=== PATIENT | female | born 1950 | race African-American/Black ===

== ENCOUNTER 2018-03-20 09:49 | Emergency (ER) | payer MEDICARE, OTHER ==
[~2018-03-20] VITALS: Ht 165.1 cm; Wt 64.9 kg
[2018-03-20 10:05] VITALS: BP 139/86
--- NOTE | 2018-03-20 10:35 | Emergency Room Report ---
History of Present Illness General Chief Complaint: Eye Problems Source: Patient Present Illness HPI The patient states that she used a hair product that she got into her eye several days ago. She states she noted some burning and irritation in her left eye. However, she states that yesterday she woke up and the eyelid was swollen. She states the conjunctivae her eye became swollen and irritated. She does wear contacts and continues to wear her contacts. She denies eye pain. She denies change in vision. She states that there has been some discharge on her eyelids in the morning. She denies light sensitivity. She has no other complaints. Allergies: Coded Allergies: PENICILLINS (Verified Allergy, Unknown, 03/20/18) Patient History Past Medical History: none Social History: Denies: smoking, alcohol use, drug use Last Menstrual Period: 25 yrs ago Reviewed Nursing Documentation: PMH: Agreed; PSxH: Agreed Nursing Documentation-PMH Past Medical History: No Stated History Review of Systems All Other Systems: negative except mentioned in HPI Physical Exam Vital Signs Date Time Temp Pulse Resp B/P (MAP) Pulse Ox O2 Delivery O2 Flow Rate FiO2 03/20/18 09:59 98.0 76 18 139/86 96 Room Air 98.1 Sp02 EP Interpretation: reviewed, normal General Appearance: no apparent distress, alert, GCS 15, non-toxic Head: normocephalic, atraumatic Eyes: left eye other - Clear eye lid and periorbital swelling (no erythema). Conjuctival edema and erythema. +2 contacts removed from eye.; bilateral eye PERRL ENT: hearing grossly normal, normal pharynx, no angioedema, normal voice Neck: full range of motion, supple/symm/no masses Respiratory: no respiratory distress, no retraction, no accessory muscle use, speaking full sentences Rectal: deferred Musculoskeletal: back normal, gait/station normal, normal range of motion, non- tender Neurologic: alert, oriented x3, responsive, motor strength/tone normal, sensory intact, speech normal Psychiatric: judgement/insight normal, memory normal, mood/affect normal, no suicidal/homicidal ideation Skin: normal color, no rash, warm/dry, well hydrated Medical Decision Making Diagnostic Impression: Primary Impression: Conjunctivitis Additional Impression: Allergic reaction ER Course This patient has periorbital edema consistent with an allergic reaction. There is no erythema or findings on exam that would make me concerned for periorbital cellulitis. The patient also has conjunctival edema and erythema. When I removed the patient's contact there was another contact underneath it. The patient had 2 contacts in her eye. Possibly this could've been causing the irritation and inflammation. There is no obvious corneal ulcer on exam. The patient has an appointment with her [facility] [employer] in 2 days. She has no eye pain and overall the area is primarily inflamed and there does not appear to be a hyphema or other concerning eye infection. There is no evidence of orbital cellulitis. I will place the patient on topical antibiotics. I will also place the patient on oral Benadryl. The patient was instructed to not use any contacts until this is completely resolved. I did dispose of the 2 contacts that were pulled from the patient's left eye. The patient is given very close return precautions and follow-up instructions. Last Vital Signs Date Time Temp Pulse Resp B/P (MAP) Pulse Ox O2 Delivery O2 Flow Rate FiO2 03/20/18 10:05 98.1 18 139/86 96 Room Air 98.1 03/20/18 09:59 76 Status: improved Disposition: HOME, SELF-CARE Condition: Improved Scripts No Active Prescriptions or Reported Meds Referrals: NOT CHOSEN [facility]/MD,REFERRING (PCP) Patient Instructions: Allergic Conjunctivitis, [id number], Chemical Conjunctivitis, [id number] GISSELL MARTINEZ D.O. March 20, 2018 10:35
[2018-03-20] MEDS ORDERED: BENADRYL25 MG ORAL (10:38)
[2018-03-20] MEDS ORDERED: OFLOXACIN10 ML OP (10:38)
[2018-03-20 10:56] VITALS: BP 139/86
== END 2018-03-20 10:56 | disposition home or self-care (01) ==
LOC: EMR 10:22
DX: H10.12 Acute atopic conjunctivitis, left eye (principal); Z88.0 Allergy status to penicillin
CPT/HCPCS: 99283

== ENCOUNTER 2018-12-14 22:51 | Emergency (ER) | payer MEDICARE, OTHER ==
[~2018-12-14] VITALS: Ht 165.1 cm; Wt 70.3 kg
[~2018-12-14 22:51] MED LIST: BENADRYL25 MG ORAL; OFLOXACIN10 ML OP
[2018-12-14] MEDS ORDERED: NKM (23:09)
--- NOTE | 2018-12-14 23:11 | NUR ---
ED Nurse Note: Patient walk in c/o cough, chest congestion, generalized weakness for 4x days. AO4 NAD. Attached to monitor.
[2018-12-14 23:30] VITALS: BP 150/83
[2018-12-14] MEDS ORDERED: PREDNISONE20 MG ORAL (23:47)
[2018-12-14] MEDS ORDERED: ZITHROMAX250 MG ORAL (23:47)
[2018-12-14] MEDS ORDERED: ALBUTEROL SULF8.5 GM INH (23:47)
--- NOTE | 2018-12-14 23:48 | Emergency Room Report ---
History of Present Illness General Chief Complaint: Upper Respiratory Illness Source: Patient Present Illness HPI This is a 68-year-old female with no past medical history. She presents with chief complaint of cough and congestion. Onset for last 4 days. Coughing is productive sputum. No fever chills but no nausea no vomiting. Worse with inspiration. Better with rest. Denies any other complaint. Allergies: Coded Allergies: PENICILLINS (Verified Allergy, Unknown, 03/20/18) Patient History Past Medical History: see triage record, old chart reviewed Past Surgical History: none Pertinent Family History: none Social History: Denies: smoking Last Menstrual Period: PABLO Now: No Immunizations: other Reviewed Nursing Documentation: PMH: Agreed; PSxH: Agreed Nursing Documentation-PMH Past Medical History: No Stated History Review of Systems Eye: Denies: eye pain, blurred vision ENT: Denies: ear pain, nose congestion, throat swelling Respiratory: Reports: cough, shortness of breath, sputum Cardiovascular: Denies: chest pain, palpitations Gastrointestinal: Denies: abdominal pain, diarrhea, nausea, vomiting Musculoskeletal: Denies: back pain, joint pain Skin: Denies: rash Neurological: Denies: headache, numbness Endocrine: Denies: increased thirst, increased urine Hematologic/Lymphatic: Denies: easy bruising All Other Systems: negative except mentioned in HPI Physical Exam Vital Signs Date Time Temp Pulse Resp B/P (MAP) Pulse Ox O2 Delivery O2 Flow Rate FiO2 12/14/18 23:05 98.2 85 16 150/83 96 Room Air vitals normal Sp02 EP Interpretation: reviewed, normal General Appearance: well appearing, no apparent distress, alert Head: normocephalic, atraumatic Eyes: bilateral eye PERRL, bilateral eye EOMI ENT: hearing grossly normal, normal pharynx Neck: full range of motion, supple, no meningismus Respiratory: chest non-tender, lungs clear, normal breath sounds, other - Coughing fits with inspiration. Cardiovascular #1: regular rate, rhythm, no murmur Gastrointestinal: normal bowel sounds, non tender, no mass, no organomegaly, no bruit, non-distended Musculoskeletal: back normal, gait/station normal, normal range of motion Neurologic: alert, oriented x3 Psychiatric: mood/affect normal Skin: warm/dry Medical Decision Making Diagnostic Impression: Primary Impression: Upper respiratory infection Qualified Codes: J06.9 - Acute upper respiratory infection, unspecified ER Course Patient presents with upper respiratory infection. No evidence of ACS, PE, dissection to name a few. We'll discharge home. Last Vital Signs Date Time Temp Pulse Resp B/P (MAP) Pulse Ox O2 Delivery O2 Flow Rate FiO2 12/14/18 23:05 98.2 85 16 150/83 96 Room Air Status: unchanged Disposition: HOME, SELF-CARE Condition: Stable Scripts Azithromycin* (ZITHROMAX*) 250 Mg Tablet 250 MG ORAL DAILY, #6 TAB 0 Refills Take two tables once daily for 1 day, then one tablet once daily for 4 days. Prov: Wayne Lion MD 12/14/18 Prednisone* (PREDNISONE*) 20 Mg Tablet 40 MG ORAL DAILY, #10 TAB Prov: Wayne Lion MD 12/14/18 Albuterol Sulfate* (ALBUTEROL SULFATE MDI*) 8.5 Gm Hfa.aer.ad 2 PUFF INH Q4H PRN for cough/wheezing, #1 EA 0 Refills Prov: Wayne Lion MD 12/14/18 Patient Instructions: Upper Respiratory Infection, Adult Additional Instructions: Increase fluids. Follow-up with your doctor in 7 days. Return if worse. Wayne Lion MD Dec 14, 2018 23:48
[2018-12-14 23:53] VITALS: BP 150/83
--- NOTE | 2018-12-14 23:53 | NUR ---
ED Nurse Note: Patient cleared for discharge per ERMD. AO4 NAD. VSS. Patient given prescriptions and discharge instructions; verbalized understanding. ID band removed. Patient ambulated steady with all personal belongings.
== END 2018-12-14 23:53 | disposition home or self-care (01) ==
LOC: EMR 23:43
DX: J06.9 Acute upper respiratory infection, unspecified (principal); Z88.0 Allergy status to penicillin
CPT/HCPCS: 99282

== ENCOUNTER 2019-11-13 17:37 | Emergency (ER) | payer MEDICARE, OTHER ==
[~2019-11-13] VITALS: Ht 162.6 cm; Wt 69.4 kg
[~2019-11-13 17:37] MED LIST changes: +ALBUTEROL SULF8.5 GM INH; +NKM; +PREDNISONE20 MG ORAL; +ZITHROMAX250 MG ORAL
--- NOTE | 2019-11-13 18:30 | NUR ---
ED Nurse Note: pt ambulated into ED CO of feeling dehydrated. Pt denies dizziness, weakness, n/v, changes in mentation and balance, and pain.
[2019-11-13 18:34] VITALS: BP 145/85
--- NOTE | 2019-11-13 19:10 | NUR ---
ED Nurse Note: Report received from WAYNE Rodriguez. Pt resting in bed at this time. No acute distress or pain noted. IV fluids infusing as ordered. Will continue to monitor.
--- NOTE | 2019-11-13 19:28 | Emergency Room Report ---
History of Present Illness General Chief Complaint: General Complaint Source: Patient Present Illness HPI 69-year-old female with no symptom past medical history here first with her knees for her to be treated for food poisoning which she decides to checking reporting that she has been feeling dehydrated for over 1 year. Patient reports that she goes to the [facility] and gets tested for various things has been having recent blood work which reports everything has been normal. Patient reports that she is constantly dehydrated however vital signs are within normal limits. Patient is eating a sandwich and chips and appears to be stable. Denies chest pain, shortness of breath, palpitation, headache and dizziness. Is requesting IV fluids. Has no other complaints. Denies Allergies: Coded Allergies: PENICILLINS (Verified Allergy, Unknown, 03/20/18) Patient History Past Medical History: see triage record Past Surgical History: unable to obtain Pertinent Family History: none Now: No Immunizations: UTD Reviewed Nursing Documentation: PMH: Agreed; PSxH: Agreed Nursing Documentation-PMH Past Medical History: No Stated History Review of Systems All Other Systems: negative except mentioned in HPI Physical Exam Vital Signs Date Time Temp Pulse Resp B/P (MAP) Pulse Ox O2 Delivery O2 Flow Rate FiO2 11/13/19 18:21 97.9 53 16 145/85 (105) 97 Room Air Sp02 EP Interpretation: reviewed, normal General Appearance: no apparent distress, alert, GCS 15, non-toxic Head: normocephalic, atraumatic Eyes: bilateral eye normal inspection, bilateral eye PERRL ENT: hearing grossly normal, normal pharynx, no angioedema, normal voice Neck: full range of motion, supple, thyroid normal, supple/symm/no masses Respiratory: chest non-tender, lungs clear, normal breath sounds, no rhonchi, no wheezing, speaking full sentences Cardiovascular #1: regular rate, rhythm, no edema, no murmur, normal capillary refill Gastrointestinal: non tender, soft, no mass Genitourinary: normal inspection, no CVA tenderness Musculoskeletal: back normal Psychiatric: judgement/insight normal, memory normal, mood/affect normal, no suicidal/homicidal ideation Skin: no rash Lymphatic: no adenopathy Medical Decision Making PA Attestation All diagnoses and treatment plans were reviewed and discussed with my supervising physician Dr. Bates Diagnostic Impression: Primary Impression: Dehydration ER Course 69-year-old female with no symptom past medical history here first with her knees for her to be treated for food poisoning which she decides to checking reporting that she has been feeling dehydrated for over 1 year. Patient reports that she goes to the [facility] and gets tested for various things has been having recent blood work which reports everything has been normal. Patient reports that she is constantly dehydrated however vital signs are within normal limits. Patient is eating a sandwich and chips and appears to be stable. Denies chest pain, shortness of breath, palpitation, headache and dizziness. Is requesting IV fluids. Has no other complaints. Denies Ddx considered but are not limited to: Fatigue, dehydration, diabetes Vital signs: are WNL, pt. is afebrile H&PE are most consistent with dehydration ORDERS: None ED INTERVENTIONS: IV fluids DISCHARGE: At this time pt. is stable for d/c to home. Will provide printed patient care instructions, and any necessary prescriptions. Care plan and follow up instructions have been discussed with the patient prior to discharge. Patient appears to be stable, symptoms appear to be chronic and patient stable I advised patient to follow primary care provider for complete blood work. At this time patient stable and agrees to only receive IV fluids. No signs of obvious dehydration noted. Patient is given complementary NS bolus. Last Vital Signs Date Time Temp Pulse Resp B/P (MAP) Pulse Ox O2 Delivery O2 Flow Rate FiO2 11/13/19 18:34 53 16 Room Air 11/13/19 18:34 97.9 145/85 97 Disposition: HOME, SELF-CARE Condition: Stable Patient Instructions: Dehydration, Adult, [id number] Additional Instructions: Take medication as directed, follow-up with your primary care provider, increase oral hydration, you need to be seen by primary care provider as you have been feeling fatigued and dehydrated for 1 year. Complete blood work as well as further evaluation to be done by your primary care physician. At this time it is not an acute condition and can be treated in outpatient clinic. Gretchen Mccall Nov 13, 2019 19:28
[2019-11-13 20:05] VITALS: BP 138/80
--- NOTE | 2019-11-13 20:05 | NUR ---
ER DISCHARGE NOTE: Patient is cleared to be discharged per ERMD, pt is aox4, on room air, with stable vital signs. pt was given dc and prescription instructions, pt was able to verbalize understanding, pt id band and iv site removed without complications. pt is able to ambulate with steady gait. pt took all belongings.
== END 2019-11-13 20:05 | disposition home or self-care (01) ==
LOC: EMR 19:25
DX: E86.0 Dehydration (principal); Z88.0 Allergy status to penicillin
CPT/HCPCS: 96360; 99284

== ENCOUNTER 2020-10-22 01:20 | Emergency (ER) | payer MEDICARE ==
[~2020-10-22] VITALS: Ht 167.6 cm; Wt 70.3 kg
[2020-10-22 02:00] VITALS: BP 171/96
--- NOTE | 2020-10-22 02:00 | NUR ---
ED Nurse Note: Patient walked into ED for c/o headache x1 day. Denies n/v or visual disturbances. BP elevated upon ED triage, MD aware. She is aaox4, breathing is normal and unlabored. No chest pain, sob or cough noted. Denies any injury or head trauma.
--- NOTE | 2020-10-22 02:13 | Emergency Room Report ---
History of Present Illness General Chief Complaint: Headache Source: Patient Present Illness HPI 70-year-old female presents complaining of headache. X1 day. Pain is shooting from one side of head to the other. Denies pain at this time. Denies photophobia or blurry vision. Denies nausea or vomiting. BP in triage elevated. Denies history of hypertension. States she does not see a PMD. [facility] No other aggravating relieving factors. Denies any other associated symptoms Allergies: Coded Allergies: PENICILLINS (Verified Allergy, Unknown, 03/20/18) COVID-19 Screening Contact w/high risk pt: No Experienced COVID-19 symptoms?: No COVID-19 Testing performed G[employer] SERVICES: No Patient History Past Medical History: none Past Surgical History: none Pertinent Family History: none Social History: Denies: smoking, alcohol use, drug use Now: No Immunizations: UTD Reviewed Nursing Documentation: PMH: Agreed; PSxH: Agreed Nursing Documentation-PMH Past Medical History: No Stated History Review of Systems All Other Systems: negative except mentioned in HPI Physical Exam Vital Signs Date Time Temp Pulse Resp B/P (MAP) Pulse Ox O2 Delivery O2 Flow Rate FiO2 10/22/20 01:37 98.2 60 16 171/96 (121) 97 Room Air Sp02 EP Interpretation: reviewed, normal General Appearance: no apparent distress, alert, GCS 15, non-toxic Head: normocephalic, atraumatic Eyes: bilateral eye normal inspection, bilateral eye PERRL ENT: hearing grossly normal, normal pharynx, no angioedema, normal voice Neck: full range of motion, supple/symm/no masses Respiratory: chest non-tender, lungs clear, normal breath sounds, speaking full sentences Cardiovascular #1: regular rate, rhythm, no edema Cardiovascular #2: 2+ carotid (R), 2+ carotid (L), 2+ radial (R), 2+ radial (L), 2+ dorsalis pedis (R), 2+ dorsalis pedis (L) Gastrointestinal: normal bowel sounds, non tender, soft, non-distended, no guarding, no rebound Rectal: deferred Genitourinary: normal inspection, no CVA tenderness Musculoskeletal: back normal, normal range of motion, gait/station normal, non- tender Neurologic: alert, motor strength/tone normal, oriented x3, sensory intact, responsive, speech normal Psychiatric: judgement/insight normal, memory normal, mood/affect normal, no suicidal/homicidal ideation Reflexes: 3+ bicep (R), 3+ bicep (L), 3+ tricep (R), 3+ tricep (L), 3+ knee (R), 3+ knee (L) Lymphatic: no adenopathy Medical Decision Making Last Vital Signs Date Time Temp Pulse Resp B/P (MAP) Pulse Ox O2 Delivery O2 Flow Rate FiO2 10/22/20 01:37 98.2 60 16 171/96 (121) 97 Room Air Referrals: NOT CHOSEN [facility]/,REFERRING (PCP) Ozzy Cole MD Oct 22, 2020 02:13
[2020-10-22 02:28] LABS: APPEARANCE,URINE CLEAR; BILIRUBIN, URINE NEGATIVE (NEGATIVE); COLOR,URINE PALE YELLOW; GLUCOSE, URINE (UA) NEGATIVE (NEGATIVE); KETONES,URINE NEGATIVE (NEGATIVE); NITRITE,URINE NEGATIVE (NEGATIVE); PH,URINE 6.5 (4.5-8.0); PROTEIN,URINE NEGATIVE (NEGATIVE); UROBILINOGEN,URINE NORMAL MG/DL (0.0-1.0)
[2020-10-22 02:29] LABS: BASOPHILS % (AUTO) 2.2 % (0.0-2.0); EOSINOPHILS % (AUTO) 2.3 % (0.0-3.0); HEMOGLOBIN 13.8 G/DL (12.0-16.0); LYMPHOCYTES % (AUTO) 43.6 % (20.0-45.0); MEAN CORPUSCULAR VOLUME 92 FL (80-99); PLATELET COUNT 244 K/UL (150-450); RED BLOOD COUNT 4.25 M/UL (4.20-5.40); RED CELL DISTRIBUTION WIDTH 12.6 % (11.6-14.8); WHITE BLOOD COUNT 6.5 K/UL (4.8-10.8)
[2020-10-22 02:44] LABS: CALCIUM 9.3 MG/DL (8.5-10.1); CREATININE 1.1 MG/DL (0.55-1.30); POTASSIUM 3.9 MMOL/L (3.5-5.1)
[2020-10-22 02:57] LABS: ALBUMIN 3.6 G/DL (3.4-5.0); ALBUMIN/GLOBULIN RATIO 0.8 (1.0-2.7); BILIRUBIN,TOTAL 0.2 MG/DL (0.2-1.0)
--- NOTE | 2020-10-22 03:03 | Diagnostic Imaging Report ---
EXAM: CT Head Without Intravenous Contrast CLINICAL HISTORY: H/A TECHNIQUE: Axial computed tomography images of the head/brain without intravenous contrast. CTDI is 53.40 mGy and DLP is 1125.70 mGy-cm. One or more of the following dose reduction techniques were used: automated exposure control, adjustment of the mA and/or kV according to patient size, use of iterative reconstruction technique. COMPARISON: No relevant prior studies available. FINDINGS: No acute intracranial hemorrhage. No midline shift or mass effect. The territorial [place]-white matter differentiation is maintained throughout. Mild periventricular and subcortical white matter hypoattenuation, consistent with chronic microangiopathy. No significant atrophy of the patient's age. The visualized orbits appear grossly unremarkable. The calvarium is intact. The visualized paranasal sinuses and mastoid air cells are grossly clear. IMPRESSION: No acute intracranial hemorrhage, midline shift, or mass effect.
[2020-10-22 03:11] LABS: LEUKOCYTE ESTERASE ,URINE 1+ (NEGATIVE)
[2020-10-22 03:20] VITALS: BP 157/74
--- NOTE | 2020-10-22 03:20 | NUR ---
ED Nurse Note: JOANN bedside speaking with patient. MD aware of patient BP, he is ok with DC patient home. Patient agreed and verbalized understanding that she will follow up with PCP regarding BP.
[2020-10-22 03:30] VITALS: BP 154/70
--- NOTE | 2020-10-22 03:30 | NUR ---
ER DISCHARGE NOTE: Patient is cleared to be discharged per ERMD, pt is aox4, on room air, with stable vital signs besides BP, MD aware of BP. pt was given dc instructions, pt was able to verbalize understanding, pt id band and iv site removed without complications. pt is able to ambulate with steady gait. pt took all belongings.
== END 2020-10-22 03:35 | disposition home or self-care (01) ==
LOC: EMR 01:37
DX: R51.9 Headache, unspecified (principal); Z88.0 Allergy status to penicillin
CPT/HCPCS: 36415; 70450; 80053; 81003; 85025; 96360; 99284

== ENCOUNTER 2020-11-14 21:20 | Emergency (ER) | payer SELFPAY ==
[~2020-11-14] VITALS: Ht 165.1 cm; Wt 71.2 kg
--- NOTE | 2020-11-14 21:34 | NUR ---
ED Nurse Note: Patient left without being seen. Pt just wanted to check her BP.
[2020-11-14 22:16] VITALS: BP 164/86
== END 2020-11-14 22:30 | disposition left against medical advice (07) ==
LOC: EMR 21:25
DX: R51.9 Headache, unspecified (principal); Z53.21 Procedure and treatment not carried out due to patient leaving prior to being seen by health care provider
CPT/HCPCS: 99281